=== PATIENT | female | born 1975 | race Hispanic/Latino ===

== ENCOUNTER → 2018-03-14 | Outpatient (REF) | payer OTHER ==
[2018-03-14 12:00] LABS: HEMATOCRIT 40.3 % (36.0-47.0); HEMOGLOBIN 12.9 g/dl (12.0-15.5); MEAN CORPUSCULAR HEMOGLOBIN 27.7 pg (27.0-33.0); MEAN CORPUSCULAR VOLUME 86.5 fl (80.0-96.0); PLATELET COUNT, AUTOMATED 269 10^3/uL (150-450); RED BLOOD COUNT 4.66 10^6/uL (4.00-5.40); RED CELL DISTRIBUTION WIDTH 13.9 % (11.5-14.5); WHITE BLOOD COUNT 7.6 10^3/uL (4.0-10.0)
[2018-03-14 12:33] LABS: TOTAL 25(OH) VITAMIN D 23.2 NG/ML (30.0-100.0)
[2018-03-14 13:13] LABS: HEPATITIS C VIRUS ABY INDEX 0.1 INDEX (<0.8); HIV 1&2 SCREEN CENTAUR NEGATIVE (NEGATIVE)
[2018-03-14 13:14] LABS: ALBUMIN 3.6 GM/DL (3.2-5.2); ALBUMIN/GLOBULIN RATIO 0.88 (1.00-1.93); ALKALINE PHOSPHATASE 60 U/L (45-117); ALT/SGPT 43 U/L (12-78); ANION GAP 11 MEQ/L (8-16); AST/SGOT 20 U/L (7-37); BILIRUBIN,TOTAL 0.4 MG/DL (0.2-1.0); BLOOD UREA NITROGEN 12 MG/DL (7-18); CARBON DIOXIDE LEVEL 24 MEQ/L (21-32); CHLORIDE LEVEL 107 MEQ/L (98-107); CHOLESTEROL LEVEL 215 MG/DL (<200); CHOLESTEROL RISK RATIO 4.215 (<5); CREATININE FOR GFR 0.78 MG/DL (0.55-1.30); FREE T4 0.88 NG/DL (0.76-1.46); GLOMERULAR FILTRATION RATE > 60.0 (>58); GLUCOSE, FASTING 82 MG/DL (70-100); HDL CHOLESTEROL 51 MG/DL (>40); NON-HDL-C 164 MG/DL; POTASSIUM SERUM 4.1 MEQ/L (3.5-5.1); SODIUM LEVEL 142 MEQ/L (136-145); TOTAL PROTEIN 7.7 GM/DL (6.4-8.2); TRIGLYCERIDES LEVEL 155 MG/DL (<150)
== END ==
LOC: M SFHCPLAZ 09:31
DX: Z11.4 Encounter for screening for human immunodeficiency virus [HIV] (principal); Z68.30 Body mass index [BMI] 30.0-30.9, adult; Z11.59 Encounter for screening for other viral diseases; Z13.220 Encounter for screening for lipoid disorders; E55.9 Vitamin D deficiency, unspecified

== ENCOUNTER → 2018-03-28 | Outpatient (CLI) | payer OTHER | LOC: M RAD 09:57 | DX: Z12.31 Encounter for screening mammogram for malignant neoplasm of breast (principal) | CPT/HCPCS: 77067 ==

== ENCOUNTER → 2018-04-17 | Outpatient (CLI) | payer OTHER ==
[~2018-04-17] MED LIST: PROHANCE 279.3MG/ML 15ML VIAL (A9576) As Ordered
== END ==
LOC: M RAD 08:06
DX: R92.2 Inconclusive mammogram (principal)
CPT/HCPCS: A9576

== ENCOUNTER → 2018-04-26 | Outpatient (CLI) | payer OTHER | LOC: M RAD 14:38 | DX: N60.11 Diffuse cystic mastopathy of right breast (principal); N60.12 Diffuse cystic mastopathy of left breast | CPT/HCPCS: C8908 ==

== ENCOUNTER → 2018-06-26 | Outpatient (CLI) | payer OTHER | LOC: M RAD 16:38 | DX: M54.5 Low back pain (principal) | CPT/HCPCS: 72148 ==

== ENCOUNTER → 2019-01-28 | Outpatient (CLI) | payer OTHER ==
--- NOTE | 2019-01-28 13:31 | REP ---
Chest x-ray: Two views. History: Left subscapular pain. Findings: The lungs are well inflated and clear. Pleural angles are sharp. Heart size is normal. No significant bony abnormality is seen. Pulmonary vasculature is not increased. There are minimal degenerative changes in the thoracic spine. Impression: No active disease. Electronically Signed by Girma Tran MD 01/28/2019 01:23 P
--- NOTE | 2019-01-28 13:52 | REP ---
LEFT SCAPULA: Two views. HISTORY: Left scapular pain. Chest pain. FINDINGS: AP and tangential views of the scapula demonstrate normal alignment of the glenohumeral and acromioclavicular joints. No scapular deformity is seen. No bony destructive lesion is seen. Lexa-articular and lexa-scapular soft tissues are unremarkable. No rib abnormality is appreciated. IMPRESSION: Negative radiographs of the left scapula. Electronically Signed by Girma Tran MD 01/28/2019 05:11 P
== END ==
LOC: M LRY 12:35
PROVIDERS: ATTEND Physician Assistant
DX: M25.512 Pain in left shoulder (principal)

== ENCOUNTER → 2019-09-05 | Outpatient (CLI) | payer OTHER ==
--- NOTE | 2019-09-05 15:42 | REPMRS ---
Patient History The patient states she had a clinical breast exam in July 2019. Family history of breast cancer at age 80 in paternal aunt. Taking hormonal contraceptives for 6 years. Digital Woman Screen Mammo: September 05, 2019 - Exam #: [id number] Bilateral CC and MLO view(s) were taken. Technologist: Roxanne Leo Technologist Prior study comparison: March 28, 2018, bilateral digital mammo screening bilat, performed at [facility]. May 22, 2015, bilateral digital woman screen mammo, performed at [facility]. FINDINGS: The breast tissue is heterogeneously dense. This may lower the sensitivity of mammography. There is a moderate amount of heterogeneously dense fibroglandular tissue which is fairly symmetric. There is no interval development of dominant mass, architectural distortion, or grouped microcalcification typical of malignancy. There has been no change in the appearance of the mammogram from the prior studies. Assessment: BI-RADS/ACR category 1 mammogram. Negative Mammogram. Recommendation Breast MRI of both breasts in 6 months. Routine screening mammogram of both breasts in 1 year (for women over age 40). This patient's Lifetime Breast Cancer RIsk is estimated at 21.2 %. Annual screening Breast MRI scanniing is recommended for patient's whose lifetime risk assessment is over 20%. This mammogram was interpreted with the aid of an FDA-approved computer-aided dectection system. Electronically Signed By: Vijay Tran MD 09/05/19 [id number]
== END ==
LOC: M WHC 14:56
PROVIDERS: ATTEND Nurse Practitioner Family
DX: Z12.31 Encounter for screening mammogram for malignant neoplasm of breast (principal)

== ENCOUNTER → 2019-09-13 | Outpatient (CLI) | payer OTHER ==
--- NOTE | 2019-09-13 10:10 | REPVR ---
PROCEDURE INFORMATION: Exam: MR Cervical Spine Without Contrast Exam date and time: 09/13/2019 8:59 AM Age: 44 years old Clinical indication: Pain; Cervicalgia; Additional info: Cervicalgia, disc displacement TECHNIQUE: Imaging protocol: Multiplanar magnetic resonance images of the cervical spine without contrast. COMPARISON: No relevant prior studies available. FINDINGS: Craniocervical junction appears normal, with no evidence of Chiari I malformation and normal position of cerebellar tonsils. Straightening of lordosis may be positional or related to muscular spasm. Correlate clinically. There is no vertebral subluxation. Vertebral body heights are normal. Cervical spinal cord signal is normal without intrinsic or extrinsic lesions. Disc heights are well-preserved. There is cervical relatively sparing C4-C5 and C7-T1. Vertebral body marrow signal is unremarkable. Axial images: C2-C3: There is minimal disc bulge, without focal disc protrusion. There is no significant cord compression. There is no neural foraminal or spinal stenosis. C3-C4: There is minimal disc bulge, without focal disc protrusion. There is no significant cord compression. There is no neural foraminal or spinal stenosis. C4-C5: There is minimal disc bulge, without focal disc protrusion. There is no significant cord compression. There is no neural foraminal or spinal stenosis. C5-C6: There is minimal disc bulge, without focal disc protrusion. There is no significant cord compression. There is no neural foraminal or spinal stenosis. C6-C7: There is minimal disc bulge, without focal disc protrusion. There is no significant cord compression. There is no neural foraminal or spinal stenosis. C7-T1: There is minimal disc bulge, without focal disc protrusion. There is no significant cord compression. There is no neural foraminal or spinal stenosis. IMPRESSION: Essentially unremarkable for age with minimal cervical disc bulging with no focal disc protrusion. No cord compression, spinal stenosis, or neural foraminal narrowing. Electronically signed by: Marquita Cedeno On 09/13/2019 10:10:06 AM
--- NOTE | 2019-09-13 10:13 | REPVR ---
PROCEDURE INFORMATION: Exam: MR Lumbar Spine Without Contrast. Exam date and time: 09/13/2019 8:59 AM Age: 44 years old Clinical indication: Low back pain; Additional info: Cervicalgia, disc displacement TECHNIQUE: Imaging protocol: Multiplanar magnetic resonance images of the lumbar spine without intravenous contrast. COMPARISON: MRI-Spine, L.S. without con 06/26/2018 6:05 PM FINDINGS: Vertebrae: Vertebral body heights normal. There is unchanged left L1 hemangioma and tiny L2 hemangiomas. Again seen are endplate degenerative marrow changes greatest at L4-L5. Vertebral body marrow signal is unremarkable. Spinal cord: Conus terminates at T12-L1 and appears normal in signal intensity without intrinsic or extrinsic lesion. L1-L2: There is no significant disc bulge. Mild facet degeneration. There is no significant spinal stenosis. There is no significant neural foraminal narrowing. L2-L3: There is no significant disc bulge. Mild facet degeneration. There is no significant spinal stenosis. There is no significant neural foraminal narrowing. L3-L4: There is minimal disc bulge. There is mild facet degeneration. There is no significant spinal stenosis. There is no significant neural foraminal narrowing. L4-L5: There is generalized disc bulge. There is posterior annular fissure. There is stable broad-based approximately 3 mm central disc protrusion, which contacts the thecal sac and anterior margin of L5 nerve roots with moderate bilateral subarticular recesses narrowing. There is mild to moderate thickening of ligamentum flavum and facet degeneration. There is mild spinal stenosis. There is no significant neural foraminal narrowing. No interval change. L5-S1: There is focal posterior annular fissure along the right subarticular recess margin the disc, with approximately 1.5 mm subarticular recess protrusion. This should causes no narrowing subarticular recess or nerve root displacement. There is mild facet degeneration. There is no significant spinal stenosis. There is no significant neural foraminal narrowing. No interval change. Bladder: Urinary bladder is distended which could be due to lack of voiding during procedure. Reproductive: Partially visualized uterus appears somewhat prominent at fundus and slightly lobular contour and heterogeneous which could indicate presence of fibroids but this is incompletely evaluated. Soft tissues: Unremarkable. Other findings: There is disc desiccation at L4-L5 and L5-S1. IMPRESSION: 1. Small disc protrusions at L4-L5 and L5-S1 are stable to comparison examination. 2. Other findings as described. Electronically signed by: Marquita Cedeno On 09/13/2019 10:13:35 AM
== END ==
LOC: M RAD 07:27
PROVIDERS: ATTEND Physician Assistant
DX: M54.2 Cervicalgia (principal)

== ENCOUNTER → 2020-01-21 | Outpatient (CLI) | payer OTHER ==
[~2020-01-21] MED LIST changes: -PROHANCE 279.3MG/ML 15ML VIAL (A9576) As Ordered; +PROHANCE 279.3MG/ML 15ML VIAL As Ordered ONE
== END ==
LOC: M RAD 07:49
PROVIDERS: ATTEND Nurse Practitioner Family
DX: Z91.89 Other specified personal risk factors, not elsewhere classified (principal); R92.2 Inconclusive mammogram